=== PATIENT | male | born 1970 | race Caucasian/White ===

== ENCOUNTER 2016-09-11 05:54 | Day surgery (SDC) | payer OTHER ==
[~2016-09-11] VITALS: Ht 160 cm; Wt 86.4 kg
[~2016-09-11 05:54] MED LIST: CARV25 PO; MONT10TA21 PO; PRAV40 PO; PRED20 PO
[2016-09-11] MEDS ORDERED: SODIUM CHLORIDE 0.9% 1,000 ML IV ONE ×2 (06:06→06:30)
[2016-09-11] MEDS ORDERED: PANT40TA25 PO (06:50)
[2016-09-11] MEDS ORDERED: FLUT200B IH (06:50)
[2016-09-11] MEDS ORDERED: SACU1TAB4 PO (06:50)
[2016-09-11] MEDS ORDERED: NITR0.4T27 SL (06:50)
[2016-09-11] MEDS ORDERED: MAGN30TA2 PO (06:50)
[2016-09-11] MEDS ORDERED: FLUT16H NASAL (06:50)
[2016-09-11] MEDS ORDERED: MIDAZOLAM HCL 2 MG/2 ML VIAL ONE (07:15)
[2016-09-11] MEDS ORDERED: FentaNYL CITRATE-PF 100 MCG/2 ML VIAL ONE (07:16)
[2016-09-11] MEDS ORDERED: MethylPREDNISolone SOD SUCC 125 MG/2 ML VIAL IVP ONE (08:30)
[2016-09-11] MEDS ORDERED: MethylPREDNISolone SOD SUCC 125 MG/2 ML VIAL ONE (09:04)
[2016-09-11] MEDS ORDERED: BENZOCAINE 20% 50 MCG/SPRAY 57 GM TP ONE (17:05)
[2016-09-11] MEDS ORDERED: LIDOCAINE HCL 2% 30 ML JELLY TP ONE (17:05)
[2016-09-11] MEDS ORDERED: LIDOCAINE HCL 4% 50 ML SOLUTION TP ONE (17:05)
[2016-09-11] MEDS ORDERED: ALBUTEROL SULFATE 2.5 MG/0.5 ML NEB SOLUTION NEB ONE (17:05)
[2016-09-11] MEDS ORDERED: EPINEPHrine 1:1,000 [1 MG/ML] AMP IM ONE (17:05)
[2016-09-11] MEDS ORDERED: OXYGEN THERAPY IH SCH (20:00)
== END 2016-09-11 10:05 | disposition home or self-care (01) ==
LOC: SURGERY 05:54
PROVIDERS: ATTEND Internal Medicine Critical Care Medicine
DX: J38.4 Edema of larynx (principal); I25.5 Ischemic cardiomyopathy; E78.00 Pure hypercholesterolemia, unspecified; Z98.890 Other specified postprocedural states
CPT/HCPCS: 31623; 31624; 71010; 87015; 87070; 87101; 87205; 87220; 88184; 88185; 93005; J0171; J2250; J2930; J3010; J7030; 87147; 88108; 88312